=== PATIENT | male | born 1955 | race Caucasian/White ===

== ENCOUNTER 2025-09-18 10:01 | Outpatient (CLI) | payer MEDICARE | END 2025-09-18 10:02 | disposition home or self-care (01) | LOC: NAV RAD 10:01 | PROVIDERS: ATTEND Nurse Practitioner Family | DX: Z87.01 Personal history of pneumonia (recurrent) (principal); J84.9 Interstitial pulmonary disease, unspecified; M47.819 Spondylosis without myelopathy or radiculopathy, site unspecified; J98.4 Other disorders of lung | CPT/HCPCS: 71046 ==